=== PATIENT | male | born 1990 | race Caucasian/White ===

== ENCOUNTER 2020-03-27 14:41 | Emergency (ER) | payer OTHER ==
[2020-03-27 14:48] VITALS: BP 166/86; PULSE 76; RESP 18; TEMP 98.2
[2020-03-27] MEDS ORDERED: traMADol 50 MG STARTER PACK 3 TAB BTL PO STA (15:17)
--- NOTE | 2020-03-27 15:18 | ED ---
General Adult HPI - General Chief complaint: Recheck/Abnormal Lab/Rx Stated complaint: hemorrhoids Time Seen by Provider: 03/27/20 15:10 Source: patient, RN notes reviewed Mode of arrival: ambulatory Limitations: no limitations - History of Present Illness Initial comments: Patient is a pleasant 29-year-old male presenting to the emergency Department [facility] complaints of rectal pain. Onset of symptoms was a week or 2 ago. Patient complains of discomfort in the rectum. No bleeding. No history of similar symptoms previously. Patient does have occasional loose stools since having his gallbladder removed a couple of years ago. No abdominal pain. No fevers. No nausea vomiting. - Related Data Previous Rx's Medication Instructions Recorded Hydrocortisone Acetate [Anusol-Hc] 25 mg RC Q8HR #12 supp.rect 03/27/20 Allergies Allergy/AdvReac Type Severity Reaction Status Date / Time No Known Allergies Allergy Verified 03/27/20 14:49 Review of Systems ROS Statement: Those systems with pertinent positive or pertinent negative responses have been documented in the HPI. ROS Other: All systems not noted in ROS Statement are negative. Constitutional: Denies: fever Eyes: Denies: eye pain ENT: Denies: ear pain Respiratory: Denies: cough, dyspnea Cardiovascular: Denies: chest pain Endocrine: Denies: fatigue Gastrointestinal: Reports: as per HPI. Denies: abdominal pain Genitourinary: Denies: urgency Skin: Denies: rash Neurological: Denies: weakness Past Medical History Past Medical History: Hypertension History of Any Multi-Drug Resistant Organisms: None Reported Past Surgical History: No Surgical Hx Reported, Cholecystectomy, Tonsillectomy Additional Past Surgical History / Comment(s): kidney stone removal Past Psychological History: No Psychological Hx Reported Smoking Status: Never smoker Past Alcohol Use History: None Reported Past Drug Use History: Marijuana General Exam Limitations: no limitations General appearance: alert, in no apparent distress Head exam: Present: normocephalic Eye exam: Present: normal appearance Neck exam: Present: normal inspection Respiratory exam: Present: normal lung sounds bilaterally Cardiovascular Exam: Present: regular rate, normal rhythm GI/Abdominal exam: Present: soft. Absent: tenderness Rectal exam: Present: hemorrhoids (Internal hemorrhoid palpable borderline internal rectal region. Unable to visualize on gross exam) Extremities exam: Present: normal inspection Neurological exam: Present: alert Psychiatric exam: Present: normal affect, normal mood Skin exam: Present: normal color Course Vital Signs 03/27/20 14:45 Temperature 98.2 F Pulse Rate 76 Respiratory 18 Rate Blood Pressure 166/86 O2 Sat by Pulse 98 Oximetry Medical Decision Making - Medical Decision Making Patient has probable hemorrhoid is advised to follow-up with general surgeon regarding this. Disposition Clinical Impression: Hemorrhoid Disposition: HOME SELF-CARE Condition: Stable Instructions (If sedation given, give patient instructions): Hemorrhoids (ED) Additional Instructions: Please follow-up with surgeon in the next couple of days for repeat evaluation and further care. Return for bleeding, fever, increased pain, worsening or changing symptoms or other concerns. Prescription sent to [facility] in [place] Prescriptions: Hydrocortisone Acetate [Anusol-Hc] 25 mg RC Q8HR #12 supp.rect Is patient prescribed a controlled substance at d/c from ED?: No Referrals: Miguel Bolivar MD [STAFF PHYSICIAN] - 1-2 days Time of Disposition: 15:22
== END 2020-03-27 15:31 | disposition home or self-care (01) ==
LOC: EC 14:41
DX: K64.8 Other hemorrhoids (principal); I10 Essential (primary) hypertension
CPT/HCPCS: 99282

== ENCOUNTER 2020-10-24 16:15 | Emergency (ER) | payer OTHER ==
[2020-10-24 16:35] VITALS: RESP 18
[2020-10-24] MEDS ORDERED: SODIUM CHLORIDE 0.9% 2,000 ML IV STA (16:50)
[2020-10-24] MEDS ORDERED: ONDANSETRON 4 MG/2 ML VIAL IVP STA (16:50)
[2020-10-24] MEDS ORDERED: HYDROmorphone 1 MG/ML 1 ML SYRINGE IVP STA (16:50)
[2020-10-24] MEDS ORDERED: KETOROLAC 15 MG/ML 1 ML VIAL IVP STA (16:50)
[2020-10-24] MEDS ORDERED: KETOROLAC 15 MG/ML 1 ML VIAL ONE (17:13)
[2020-10-24] MEDS ORDERED: HYDROmorphone 0.5 MG/0.5 ML SYRINGE IVP STA (17:21)
[2020-10-24] MEDS ORDERED: diphenhydrAMINE 50 MG/ML 1 ML VIAL IVP STA (17:21)
[2020-10-24] MEDS ORDERED: METOCLOPRAMIDE 5 MG/ML 2 ML VIAL IVP STA (17:21)
[2020-10-24 17:24] LABS: Basophils # (A) 0.1 k/uL (0-0.2); Basophils % (A) 1 %; Eosinophils # (A) 0.1 k/uL (0-0.7); Eosinophils % (A) 1 %; HCT 53.3 % (39.0-53.0); HGB 18.2 gm/dL (13.0-17.5); Lymphocytes # (A) 2.8 k/uL (1.0-4.8); Lymphocytes % (A) 26 %; MCH 29.4 pg (25.0-35.0); MCHC 34.2 g/dL (31.0-37.0); Mean Platelet Volume 6.9; Monocytes # (A) 0.6 k/uL (0-1.0); Monocytes % (A) 6 %; Neutrophils # (A) 7.1 k/uL (1.3-7.7); Neutrophils % (A) 65 %; Platelet Count 284 k/uL (150-450)
[2020-10-24 17:46] LABS: ALT 45 U/L (4-49); AST 27 U/L (17-59); African American GFR (CKD) >90 (>60 ml/min/1.73 sqM); Albumin 4.7 g/dL (3.5-5.0); Alkaline Phosphatase 67 U/L (38-126); Amylase 122 U/L (30-110); Anion Gap 11 mmol/L; Blood Urea Nitrogen 16 mg/dL (9-20); Calcium 10.1 mg/dL (8.4-10.2); Carbon Dioxide 26 mmol/L (22-30); Chloride 102 mmol/L (98-107); Glucose 162 mg/dL (74-99); Lipase 745 U/L (23-300); Non-African American GFR(CKD) 89 (>60 ml/min/1.73 sqM); Potassium 4.1 mmol/L (3.5-5.1); Sodium 139 mmol/L (137-145); Total Bilirubin 1.4 mg/dL (0.2-1.3); Total Protein 7.9 g/dL (6.3-8.2)
--- NOTE | 2020-10-24 18:06 | ED ---
Abdominal Pain HPI - General Chief Complaint: Abdominal Pain Stated Complaint: vomiting/abd pain Time Seen by Provider: 10/24/20 16:47 Source: patient, RN notes reviewed Mode of arrival: ambulatory Limitations: no limitations - History of Present Illness Initial Comments: 30-year-old male presents emergency Department chief complaint severe abdominal pain, flank pain. Patient states started earlier today. He states this is not necessary feel a kidney stone but states he's had multiple kidney stones in the past. He states she's had severe pain, nausea vomiting states the pain rates from his left flank only down into his scrotum. He has no scrotal changes noted pain with palpation to the scrotum. No dysuria he's had slight diarrhea no significant melena or hematochezia. - Related Data Previous Rx's Medication Instructions Recorded Hydrocortisone Acetate [Anusol-Hc] 25 mg RC Q8HR #12 supp.rect 03/27/20 HYDROcodone/APAP 7.5-325MG [[place] 1 tab PO Q6HR PRN 3 Days #12 tab 10/24/20 7.5-325] Ketorolac [Toradol] 10 mg PO Q8HR #15 tab 10/24/20 Ondansetron Odt [Zofran Odt] 4 mg PO Q8HR PRN #10 tab 10/24/20 Tamsulosin [Flomax] 0.4 mg PO DAILY #7 cap 10/24/20 Allergies Allergy/AdvReac Type Severity Reaction Status Date / Time No Known Allergies Allergy Verified 10/24/20 16:35 Review of Systems ROS Statement: Those systems with pertinent positive or pertinent negative responses have been documented in the HPI. ROS Other: All systems not noted in ROS Statement are negative. Past Medical History Past Medical History: Hypertension History of Any Multi-Drug Resistant Organisms: None Reported Past Surgical History: No Surgical Hx Reported, Cholecystectomy, Tonsillectomy Additional Past Surgical History / Comment(s): kidney stone removal Past Psychological History: No Psychological Hx Reported Smoking Status: Never smoker Past Alcohol Use History: None Reported Past Drug Use History: Marijuana General Exam Limitations: no limitations General appearance: alert, in no apparent distress Head exam: Present: atraumatic, normocephalic, normal inspection Eye exam: Present: normal appearance, PERRL, EOMI. Absent: scleral icterus, conjunctival injection, periorbital swelling ENT exam: Present: normal exam, normal oropharynx, mucous membranes moist Neck exam: Present: normal inspection, full ROM. Absent: tenderness, meningismus, lymphadenopathy Respiratory exam: Present: normal lung sounds bilaterally. Absent: respiratory distress, wheezes, rales, rhonchi, stridor Cardiovascular Exam: Present: regular rate, normal rhythm, normal heart sounds. Absent: systolic murmur, diastolic murmur, rubs, gallop, clicks GI/Abdominal exam: Present: soft, tenderness, normal bowel sounds. Absent: distended, guarding, rebound, rigid Back exam: Present: CVA tenderness (L). Absent: CVA tenderness (R) Neurological exam: Present: alert, oriented X3 Skin exam: Present: warm, dry, intact, normal color. Absent: rash Course Vital Signs 10/24/20 16:31 Temperature 97.8 F Pulse Rate 95 Respiratory 18 Rate Blood Pressure 170/100 O2 Sat by Pulse 99 Oximetry Medical Decision Making - Medical Decision Making Labwork reviewed shows evidence of mild pancreatitis is no localized pain CT does not reveal any acute changes on the pancreas patient does have obstructing 3 mm stone. Patient we discharged in stable condition repeat temperature discussed patient's pain is improved. - Lab Data Result diagrams: 10/24/20 17:16 10/24/20 17:16 Lab Results 10/24/20 10/24/20 Range/Units 17:16 17:16 WBC 11.0 H (3.8-10.6) k/uL RBC 6.20 H (4.30-5.90) m/uL Hgb 18.2 H (13.0-17.5) gm/dL Hct 53.3 H (39.0-53.0) % MCV 86.0 (80.0-100.0) fL MCH 29.4 (25.0-35.0) pg MCHC 34.2 (31.0-37.0) g/dL RDW 13.0 (11.5-15.5) % Plt Count 284 (150-450) k/uL MPV 6.9 Neutrophils % 65 % Lymphocytes % 26 % Monocytes % 6 % Eosinophils % 1 % Basophils % 1 % Neutrophils # 7.1 (1.3-7.7) k/uL Lymphocytes # 2.8 (1.0-4.8) k/uL Monocytes # 0.6 (0-1.0) k/uL Eosinophils # 0.1 (0-0.7) k/uL Basophils # 0.1 (0-0.2) k/uL Sodium 139 (137-145) mmol/L Potassium 4.1 (3.5-5.1) mmol/L Chloride 102 (98-107) mmol/L Carbon Dioxide 26 (22-30) mmol/L Anion Gap 11 mmol/L BUN 16 (9-20) mg/dL Creatinine 1.12 (0.66-1.25) mg/dL Est GFR (CKD-EPI)AfAm >90 (>60 ml/min/1.73 sqM) Est GFR (CKD-EPI)NonAf 89 (>60 ml/min/1.73 sqM) Glucose 162 H (74-99) mg/dL Calcium 10.1 (8.4-10.2) mg/dL Total Bilirubin 1.4 H (0.2-1.3) mg/dL AST 27 (17-59) U/L ALT 45 (4-49) U/L Alkaline Phosphatase 67 (38-126) U/L Total Protein 7.9 (6.3-8.2) g/dL Albumin 4.7 (3.5-5.0) g/dL Amylase 122 H (30-110) U/L Lipase 745 H (23-300) U/L Disposition Clinical Impression: Abdominal pain, Ureteral calculi, Pancreatitis Disposition: HOME SELF-CARE Condition: Stable Instructions (If sedation given, give patient instructions): Kidney Stones (ED) Additional Instructions: Please return to the Emergency Department if symptoms worsen or any other concerns. Prescriptions: Tamsulosin [Flomax] 0.4 mg PO DAILY #7 cap HYDROcodone/APAP 7.5-325MG [[place] 7.5-325] 1 tab PO Q6HR PRN 3 Days #12 tab PRN Reason: pain Ketorolac [Toradol] 10 mg PO Q8HR #15 tab Ondansetron Odt [Zofran Odt] 4 mg PO Q8HR PRN #10 tab PRN Reason: Nausea Is patient prescribed a controlled substance at d/c from ED?: Yes When asked, does pt state using other controlled substances?: No If prescribed controlled substance>3 days was MAPS reviewed?: Prescribed <3 Days If opioid is for acute pain is fill amount 7 days or less?: Yes If Rx opioid, was Start Talking consent form obtained?: Yes Referrals: None,Stated [Primary Care Provider] - 1-2 days Time of Disposition: 18:50
--- NOTE | 2020-10-24 18:24 | XR ---
EXAMINATION TYPE: XR KUB DATE OF EXAM: 10/24/2020 COMPARISON: NONE HISTORY: Left flank pain TECHNIQUE: 2 views FINDINGS: There is no sign of intestinal obstruction or pneumoperitoneum. Fecal pattern is normal. Th ere are clips from cholecystectomy. Lung bases are clear. There are no pathologic calcifications over the kidneys. IMPRESSION: Nonacute abdomen.
--- NOTE | 2020-10-24 18:30 | CT ---
EXAMINATION TYPE: CT abdomen pelvis w con DATE OF EXAM: 10/24/2020 COMPARISON: None HISTORY: Left sided abdominal pain with nausea and vomiting. CT DLP: 2462.3 mGycm Automated exposure control for dose reduction was used. CONTRAST: Performed with IV Contrast, patient injected with 100 mL of Isovue 300. Lung bases are clear. There is no pleural effusion. Heart size is normal. There is no pericardial eff usion. There is some fatty infiltration of the liver. There are clips from cholecystectomy. Spleen stomach p ancreas appear normal. There is no adrenal mass. There is mild left-sided hydronephrosis and hydroureter. There is 3 mm calc ulus in the distal left ureter. There is delayed left side pyelogram. Right kidney shows normal opaci fication and excretion. There is no retroperitoneal adenopathy. Appendix is posterior and appears nor mal. There is no mesenteric edema. There is no ascites or free air. There is no bowel obstruction. There i s fat containing 2.5 cm umbilical hernia. Bladder distends smoothly. There is no inguinal hernia. There is no free fluid in the pelvis. There i s no sign of a pelvic mass. Lumbar vertebra appear intact. Bony pelvis is intact. Hip joints appear normal. Sacroiliac joints are intact. IMPRESSION: There is small obstructing calculus at the left ureteral vesicle junction with left-sided mild hydron ephrosis and hydroureter. Fatty infiltration of the liver.
[2020-10-24] MEDS ORDERED: HYDROcodone/APAP 7.5-325MG 1 EACH TAB PO ONE (18:48)
[2020-10-24] MEDS ORDERED: TAMSULOSIN 0.4 MG CAP.ER.24H PO STA (18:48)
[2020-10-24 19:02] LABS: Appearance,Urine Clear (Clear); Bilirubin,Urine Negative (Negative); Blood,Urine Small (Negative); Color,Urine Yellow; Glucose,Urine (UA) Negative (Negative); Ketones,Urine Negative (Negative); Leukocyte Esterase,Urine Negative (Negative); Mucus,Urine Rare /hpf; Nitrite,Urine Negative (Negative); PH, Urine 6.5 (5.0-8.0); Protein,Urine Negative (Negative); RBC,Urine 1 /hpf (0-5); Specific Gravity,Urine 1.033 (1.001-1.035); Urobilinogen,Urine <2.0 mg/dL (<2.0); WBC,Urine <1 /hpf (0-5)
[2020-10-24 19:14] VITALS: BP 175/90; PULSE 77; TEMP 97.5
== END 2020-10-24 19:14 | disposition home or self-care (01) ==
LOC: EC 16:15
DX: K85.90 Acute pancreatitis without necrosis or infection, unspecified (principal); N20.1 Calculus of ureter; I10 Essential (primary) hypertension; Z90.49 Acquired absence of other specified parts of digestive tract
CPT/HCPCS: 36415; 80053; 82150; 83690; 85025; 81001; 74018; 74177; 99284; 96374; 96375 ×4; 96376; 96361 ×2; J1200; J2765; J2405; J1170 ×2; J1885; Q9967

== ENCOUNTER 2020-10-25 00:53 | Emergency (ER) | payer OTHER ==
[2020-10-25 00:57] VITALS: BP 153/108; PULSE 99; RESP 18; TEMP 99.4
[2020-10-25] MEDS ORDERED: HYDROcodone/APAP 5-325MG 1 EACH TAB PO STA (01:11)
[2020-10-25] MEDS ORDERED: Acetaminophen-Codeine 300-30mg TAB PO STA (01:11)
[2020-10-25] MEDS ORDERED: ACET/COD 300 MG/30 MG STARTER PACK 6 TAB BTL PO STA (01:11)
[2020-10-25] MEDS ORDERED: KETOROLAC 15 MG/ML 1 ML VIAL IM STA (01:11)
--- NOTE | 2020-10-25 01:11 | ED ---
Recheck HPI - General Chief Complaint: Recheck/Abnormal Lab/Rx Stated Complaint: Abd Pain - Revisit Time Seen by Provider: 10/25/20 00:58 Source: patient, RN notes reviewed, old records reviewed Mode of arrival: ambulatory Limitations: no limitations - History of Present Illness Initial Comments: This is a 22-year-old male DF for evaluation patient has history of multiple kidney stones recurrent was here in the ER earlier in the day for kidney stones patient requesting for pain relief. Patient denying any fevers is able to urinate no other new pain. Patient tried to get prescription filled was unable to MD Complaint: medication refill request -: hour(s) Returns Today for: persistent/worsening pain related to initial visit Symptoms Since Prior Visit: worsening pain Context: ran out of medication Associated Symptoms: abdominal pain Treatments Prior to Arrival: Given Pain Meds on - Related Data Previous Rx's Medication Instructions Recorded Hydrocortisone Acetate [Anusol-Hc] 25 mg RC Q8HR #12 supp.rect 03/27/20 HYDROcodone/APAP 7.5-325MG [[place] 1 tab PO Q6HR PRN 3 Days #12 tab 10/24/20 7.5-325] Ketorolac [Toradol] 10 mg PO Q8HR #15 tab 10/24/20 Ondansetron Odt [Zofran Odt] 4 mg PO Q8HR PRN #10 tab 10/24/20 Tamsulosin [Flomax] 0.4 mg PO DAILY #7 cap 10/24/20 Allergies Allergy/AdvReac Type Severity Reaction Status Date / Time No Known Allergies Allergy Verified 10/25/20 00:57 Review of Systems ROS Statement: Those systems with pertinent positive or pertinent negative responses have been documented in the HPI. ROS Other: All systems not noted in ROS Statement are negative. Past Medical History Past Medical History: Hypertension History of Any Multi-Drug Resistant Organisms: None Reported Past Surgical History: No Surgical Hx Reported, Cholecystectomy, Tonsillectomy Additional Past Surgical History / Comment(s): kidney stone removal Past Psychological History: No Psychological Hx Reported Smoking Status: Never smoker Past Alcohol Use History: None Reported Past Drug Use History: Marijuana General Exam Limitations: no limitations General appearance: alert, in no apparent distress Head exam: Present: atraumatic, normocephalic, normal inspection Eye exam: Present: normal appearance, PERRL, EOMI. Absent: scleral icterus, conjunctival injection, periorbital swelling ENT exam: Present: normal exam, mucous membranes moist Neck exam: Present: normal inspection. Absent: tenderness, meningismus, lymphadenopathy Respiratory exam: Present: normal lung sounds bilaterally. Absent: respiratory distress, wheezes, rales, rhonchi, stridor Cardiovascular Exam: Present: regular rate, normal rhythm, normal heart sounds. Absent: systolic murmur, diastolic murmur, rubs, gallop, clicks GI/Abdominal exam: Present: soft, normal bowel sounds. Absent: distended, tenderness, guarding, rebound, rigid Extremities exam: Present: normal inspection, full ROM, normal capillary refill. Absent: tenderness, pedal edema, joint swelling, calf tenderness Back exam: Present: normal inspection Neurological exam: Present: alert, oriented X3, CN II-XII intact Psychiatric exam: Present: normal affect, normal mood Skin exam: Present: warm, dry, intact, normal color. Absent: rash Course Vital Signs 10/25/20 00:56 Temperature 99.4 F Pulse Rate 99 Respiratory 18 Rate Blood Pressure 153/108 O2 Sat by Pulse 98 Oximetry - Reevaluation(s) Reevaluation #1: Medical record is reviewed ER visit from earlier today has been reviewed Patient has adequate pain control currently Medical Decision Making - Medical Decision Making 30 male for recheck abdominal pain. Patient has known kidney stones diagnosed earlier unable to get pain medication for home, patient is requesting pain relief in the ER until the morning Disposition Clinical Impression: Abdominal pain, Ureteral calculi Disposition: HOME SELF-CARE Condition: Good Instructions (If sedation given, give patient instructions): Abdominal Pain (ED) Is patient prescribed a controlled substance at d/c from ED?: No Referrals: None,Stated [Primary Care Provider] - 1-2 days
[2020-10-25] MEDS ORDERED: HYDROmorphone 1 MG/ML 1 ML SYRINGE IM STA (01:14)
[2020-10-25] MEDS ORDERED: ETODOLAC 400 MG TAB PO ONE (01:30)
== END 2020-10-25 01:34 | disposition home or self-care (01) ==
LOC: EC 00:53
DX: N20.1 Calculus of ureter (principal); Z87.442 Personal history of urinary calculi; Z90.49 Acquired absence of other specified parts of digestive tract
CPT/HCPCS: 99284; 96372; J1170

== ENCOUNTER 2020-12-19 20:02 | Emergency (ER) | payer OTHER ==
[2020-12-19 20:12] VITALS: RESP 18
--- NOTE | 2020-12-19 21:20 | XR ---
EXAMINATION TYPE: XR chest 2V DATE OF EXAM: 12/19/2020 COMPARISON: NONE HISTORY: Cough and short of breath TECHNIQUE: 2 views FINDINGS: Heart and mediastinum are normal. Lungs are clear. Diaphragm is normal. Bony thorax appears normal. IMPRESSION: Normal chest.
[2020-12-19] MEDS ORDERED: ONDANSETRON 4 MG ODT STARTER PACK 2 TAB BTL PO STA (21:22)
--- NOTE | 2020-12-19 21:33 | ED ---
General Adult HPI - General Chief complaint: Abdominal Pain Stated complaint: Light headed,vomiting,SOB Time Seen by Provider: 12/19/20 20:14 Source: patient Mode of arrival: ambulatory - History of Present Illness Initial comments: 30 year-old male patient presents to the emergency department today for evaluation of upper respiratory symptoms. He is reporting nasal congestion and cough that started today. He is reporting yellow nasal drainage and yellow sputum production. Reports mild chest tightness. Denies any fever or chills. States he did have an episode of vomiting. States that he felt like he nearly passed out after vomiting. Reports midepigastric discomfort. States this started approximately three hours after eating soup from [employer]. Denies any diarrhea. Did take mucinex and zicam nasal spray. Patient denies any recent rash, chest pain, abdominal pain, nausea, vomiting, diarrhea, constipation, back pain, numbness, tingling, dizziness, weakness, hematuria, dysuria, urinary urgency, urinary frequency, headache, visual changes, or any other complaints. - Related Data Home Medications Medication Instructions Recorded Confirmed No Known Home Medications 12/19/20 12/19/20 Allergies Allergy/AdvReac Type Severity Reaction Status Date / Time No Known Allergies Allergy Verified 12/19/20 20:12 Review of Systems ROS Statement: Those systems with pertinent positive or pertinent negative responses have been documented in the HPI. ROS Other: All systems not noted in ROS Statement are negative. Past Medical History Past Medical History: Hypertension Additional Past Medical History / Comment(s): pancreatitis History of Any Multi-Drug Resistant Organisms: None Reported Past Surgical History: No Surgical Hx Reported, Cholecystectomy, Tonsillectomy Additional Past Surgical History / Comment(s): kidney stone removal Past Psychological History: No Psychological Hx Reported Smoking Status: Never smoker Past Alcohol Use History: None Reported Past Drug Use History: Marijuana General Exam General appearance: alert, in no apparent distress, other (This is a well developed, well nourished, adult male patient in no acute distress. Vital signs upon presentation are temperature 98.4F, pulse 108, respirations 18, blood pressure 169/110, pulse ox 99% on room air.) Eye exam: Present: normal appearance, PERRL, EOMI. Absent: scleral icterus, conjunctival injection, periorbital swelling ENT exam: Present: normal exam, normal oropharynx, mucous membranes moist Respiratory exam: Present: normal lung sounds bilaterally. Absent: respiratory distress, wheezes, rales, rhonchi, stridor Cardiovascular Exam: Present: regular rate, normal rhythm, normal heart sounds. Absent: systolic murmur, diastolic murmur, rubs, gallop, clicks GI/Abdominal exam: Present: soft, tenderness (mild midepigastric), normal bowel sounds. Absent: distended, guarding, rebound, rigid Neurological exam: Present: alert, oriented X3, CN II-XII intact Psychiatric exam: Present: normal affect, normal mood Skin exam: Present: warm, dry, intact, normal color. Absent: rash Course Vital Signs 12/19/20 20:09 Temperature 98.4 F Pulse Rate 108 H Respiratory 18 Rate Blood Pressure 169/110 O2 Sat by Pulse 99 Oximetry Medical Decision Making - Medical Decision Making 30-year-old male patient presents to the emergency department today for evaluation of cough, nasal congestion, and an episode of vomiting. Physical examination revealed soft nontender abdomen. Lungs are clear to auscultation with good air movement. Vital signs improved. Chest x-ray is negative. He tested negative for COVID-19. Be discharged from his primary care physician for recheck in 1-2 days. Return parameters were discussed in detail. He verbalizes understanding and agrees with this plan. - Lab Data Lab Results 12/19/20 Range/Units 21:27 Coronavirus (PCR) Not Detected (Not Detectd) - Radiology Data Radiology results: report reviewed, image reviewed Two-view x-ray of the chest is obtained. Report was reviewed entirety. Impression by Dr. Jones shows normal chest. Disposition Clinical Impression: Viral upper respiratory infection Disposition: HOME SELF-CARE Condition: Good Instructions (If sedation given, give patient instructions): Upper Respiratory Infection (ED) Additional Instructions: Follow-up with the primary care physician for recheck in 1-2 days. Continue over the counter nasal decongestants and cough suppressants. Rest. Increase fluids. Return to the emergency department for any new, worsening, or concerning symptoms. Is patient prescribed a controlled substance at d/c from ED?: No Referrals: None,Stated [Primary Care Provider] - 1-2 days Time of Disposition: 22:39
[2020-12-19] MEDS ORDERED: DEXAMETHASONE SOD PHOSPHATE 10 MG/ML 1 ML VIAL IM STA (22:37)
[2020-12-19 22:57] VITALS: BP 153/85; PULSE 71; TEMP 98.2
== END 2020-12-19 22:56 | disposition home or self-care (01) ==
LOC: EC 20:02
DX: J06.9 Acute upper respiratory infection, unspecified (principal); I10 Essential (primary) hypertension; Z20.822 Contact with and (suspected) exposure to COVID-19
CPT/HCPCS: 87635; 71046; 99284; 96372; J1100; S0119

== ENCOUNTER 2021-01-13 11:46 | Emergency (ER) | payer OTHER ==
[2021-01-13 11:50] VITALS: TEMP 98.6
[2021-01-13] MEDS ORDERED: HYDROmorphone 0.5 MG/0.5 ML SYRINGE IVP STA ×3 (12:17→15:15)
[2021-01-13] MEDS ORDERED: SODIUM CHLORIDE 0.9% 2,000 ML IV STA (12:17)
[2021-01-13] MEDS ORDERED: ONDANSETRON 4 MG/2 ML VIAL IVP STA ×2 (12:17→14:44)
[2021-01-13] MEDS ORDERED: KETOROLAC 15 MG/ML 1 ML VIAL IVP STA ×2 (12:17→14:27)
--- NOTE | 2021-01-13 12:26 | ED ---
Abdominal Pain HPI - General Chief Complaint: Abdominal Pain Stated Complaint: groin pain Time Seen by Provider: 01/13/21 11:52 Source: patient, RN notes reviewed Mode of arrival: ambulatory Limitations: no limitations - History of Present Illness Initial Comments: 30-year-old male presents emergency Department chief complaint severe left flank pain. Patient states she's had multiple kidney stones in the past. Patient states this feels exactly the same. Patient is to pain is rating down into his groin, scrotum. Denies any scrotal swelling times with palpation no dysuria no noted hematuria. Patient states she's had nausea vomiting. . - Related Data Previous Rx's Medication Instructions Recorded Ketorolac [Toradol] 10 mg PO Q8HR #15 tab 01/13/21 Ondansetron Odt [Zofran Odt] 4 mg PO Q8HR PRN #10 tab 01/13/21 Tamsulosin [Flomax] 0.4 mg PO DAILY #7 cap 01/13/21 Allergies Allergy/AdvReac Type Severity Reaction Status Date / Time No Known Allergies Allergy Verified 01/13/21 13:58 Review of Systems ROS Statement: Those systems with pertinent positive or pertinent negative responses have been documented in the HPI. ROS Other: All systems not noted in ROS Statement are negative. Past Medical History Past Medical History: Hypertension Additional Past Medical History / Comment(s): pancreatitis History of Any Multi-Drug Resistant Organisms: None Reported Past Surgical History: No Surgical Hx Reported, Cholecystectomy, Tonsillectomy Additional Past Surgical History / Comment(s): kidney stone removal Past Psychological History: No Psychological Hx Reported Smoking Status: Vaper Past Alcohol Use History: None Reported Past Drug Use History: Marijuana General Exam Limitations: no limitations General appearance: alert, in no apparent distress Head exam: Present: atraumatic, normocephalic, normal inspection Eye exam: Present: normal appearance, PERRL, EOMI. Absent: scleral icterus, conjunctival injection, periorbital swelling ENT exam: Present: normal exam, mucous membranes moist Neck exam: Present: normal inspection. Absent: tenderness, meningismus, lymphadenopathy Respiratory exam: Present: normal lung sounds bilaterally. Absent: respiratory distress, wheezes, rales, rhonchi, stridor Cardiovascular Exam: Present: regular rate, normal rhythm, normal heart sounds. Absent: systolic murmur, diastolic murmur, rubs, gallop, clicks GI/Abdominal exam: Present: soft, tenderness, normal bowel sounds. Absent: distended, guarding, rebound, rigid Back exam: Present: CVA tenderness (L). Absent: CVA tenderness (R) Skin exam: Present: warm, dry, intact, normal color. Absent: rash Course Vital Signs 01/13/21 11:48 Temperature 98.6 F Pulse Rate 82 Respiratory 22 Rate Blood Pressure 188/135 O2 Sat by Pulse 99 Oximetry Medical Decision Making - Medical Decision Making 30-year-old male presented for flank pain history kidney stone patient was hydrated, given antiemetics pain control patient symptoms are improved. Patient will be discharged in stable condition return parameters were discussed. - Lab Data Result diagrams: 01/13/21 12:51 01/13/21 12:51 Lab Results 01/13/21 01/13/21 Range/Units 12:51 12:51 WBC 6.6 (3.8-10.6) k/uL RBC 6.20 H (4.30-5.90) m/uL Hgb 19.0 H (13.0-17.5) gm/dL Hct 53.3 H (39.0-53.0) % MCV 86.0 (80.0-100.0) fL MCH 30.7 (25.0-35.0) pg MCHC 35.7 (31.0-37.0) g/dL RDW 12.6 (11.5-15.5) % Plt Count 256 (150-450) k/uL MPV 7.0 Neutrophils % 63 % Lymphocytes % 26 % Monocytes % 6 % Eosinophils % 3 % Basophils % 1 % Neutrophils # 4.1 (1.3-7.7) k/uL Lymphocytes # 1.7 (1.0-4.8) k/uL Monocytes # 0.4 (0-1.0) k/uL Eosinophils # 0.2 (0-0.7) k/uL Basophils # 0.1 (0-0.2) k/uL Sodium 139 (137-145) mmol/L Potassium 4.4 (3.5-5.1) mmol/L Chloride 104 (98-107) mmol/L Carbon Dioxide 24 (22-30) mmol/L Anion Gap 11 mmol/L BUN 15 (9-20) mg/dL Creatinine 1.01 (0.66-1.25) mg/dL Est GFR (CKD-EPI)AfAm >90 (>60 ml/min/1.73 sqM) Est GFR (CKD-EPI)NonAf >90 (>60 ml/min/1.73 sqM) Glucose 125 H (74-99) mg/dL Calcium 9.7 (8.4-10.2) mg/dL Total Bilirubin 0.9 (0.2-1.3) mg/dL AST 28 (17-59) U/L ALT 42 (4-49) U/L Alkaline Phosphatase 65 (38-126) U/L Total Protein 7.9 (6.3-8.2) g/dL Albumin 4.7 (3.5-5.0) g/dL Amylase 81 (30-110) U/L Lipase 500 H (23-300) U/L Disposition Clinical Impression: Kidney stone Disposition: HOME SELF-CARE Condition: Stable Instructions (If sedation given, give patient instructions): Kidney Stones (ED) Additional Instructions: Please return to the Emergency Department if symptoms worsen or any other concerns. Prescriptions: Tamsulosin [Flomax] 0.4 mg PO DAILY #7 cap Ketorolac [Toradol] 10 mg PO Q8HR #15 tab Ondansetron Odt [Zofran Odt] 4 mg PO Q8HR PRN #10 tab PRN Reason: Nausea Is patient prescribed a controlled substance at d/c from ED?: No Referrals: None,Stated [Primary Care Provider] - 1-2 days Eamon Aceves MD [STAFF PHYSICIAN] - 1-2 days Time of Disposition: 14:22
[2021-01-13 13:01] LABS: Basophils # (A) 0.1 k/uL (0-0.2); Basophils % (A) 1 %; Eosinophils # (A) 0.2 k/uL (0-0.7); Eosinophils % (A) 3 %; HCT 53.3 % (39.0-53.0); Lymphocytes # (A) 1.7 k/uL (1.0-4.8); Lymphocytes % (A) 26 %; MCH 30.7 pg (25.0-35.0); MCHC 35.7 g/dL (31.0-37.0); Monocytes # (A) 0.4 k/uL (0-1.0); Monocytes % (A) 6 %; Neutrophils # (A) 4.1 k/uL (1.3-7.7); Neutrophils % (A) 63 %; Platelet Count 256 k/uL (150-450); RDW 12.6 % (11.5-15.5); WBC 6.6 k/uL (3.8-10.6)
[2021-01-13 13:11] LABS: ALT 42 U/L (4-49); AST 28 U/L (17-59); African American GFR (CKD) >90 (>60 ml/min/1.73 sqM); Albumin 4.7 g/dL (3.5-5.0); Alkaline Phosphatase 65 U/L (38-126); Amylase 81 U/L (30-110); Anion Gap 11 mmol/L; Blood Urea Nitrogen 15 mg/dL (9-20); Calcium 9.7 mg/dL (8.4-10.2); Carbon Dioxide 24 mmol/L (22-30); Chloride 104 mmol/L (98-107); Glucose 125 mg/dL (74-99); Lipase 500 U/L (23-300); Non-African American GFR(CKD) >90 (>60 ml/min/1.73 sqM); Potassium 4.4 mmol/L (3.5-5.1); Sodium 139 mmol/L (137-145); Total Bilirubin 0.9 mg/dL (0.2-1.3); Total Protein 7.9 g/dL (6.3-8.2)
--- NOTE | 2021-01-13 13:17 | XR ---
EXAMINATION TYPE: XR KUB DATE OF EXAM: 01/13/2021 1:09 PM CLINICAL HISTORY: Left flank pain. TECHNIQUE: 3 Upright KUB images of the abdomen are obtained. COMPARISON: Abdominal x-ray and CT October 24, 2020 FINDINGS: Possibly of bowel gas redemonstrated. Gas seen in nondistended stomach along with scattered small and large bowel loops. Cholecystectomy clips are redemonstrated. Liver size stable and upper l imits of normal. Lung bases are clear. No free air. Visualized osseous structures are intact. Small c alculus left UVJ on recent CT less well seen on plain films. IMPRESSION: Overall nonspecific but felt to be nonobstructive bowel gas pattern remains present.
[2021-01-13] MEDS ORDERED: ACET/COD 300 MG/30 MG STARTER PACK 6 TAB BTL PO STA (14:22)
[2021-01-13] MEDS ORDERED: TAMSULOSIN 0.4 MG CAP.ER.24H PO STA (14:27)
[2021-01-13 14:56] LABS: Appearance,Urine Clear (Clear); Bilirubin,Urine Negative (Negative); Blood,Urine Negative (Negative); Color,Urine Light Yellow; Glucose,Urine (UA) Negative (Negative); Ketones,Urine Negative (Negative); Leukocyte Esterase,Urine Negative (Negative); Nitrite,Urine Negative (Negative); Protein,Urine Negative (Negative); Specific Gravity,Urine 1.019 (1.001-1.035); Urobilinogen,Urine <2.0 mg/dL (<2.0)
[2021-01-13 15:20] VITALS: RESP 18
[2021-01-13] MEDS ORDERED: METOCLOPRAMIDE 5 MG/ML 2 ML VIAL IVP STA (15:40)
[2021-01-13 16:33] VITALS: BP 119/70; PULSE 75
== END 2021-01-13 16:34 | disposition home or self-care (01) ==
LOC: EC 11:46
DX: N20.0 Calculus of kidney (principal); F17.290 Nicotine dependence, other tobacco product, uncomplicated; Z90.89 Acquired absence of other organs; Z90.49 Acquired absence of other specified parts of digestive tract
CPT/HCPCS: 36415; 80053; 82150; 83690; 85025; 81003; 74018; 99284; 96374; 96375 ×3; 96376 ×4; 96361 ×2; J2765; J2405; J1885; J1170

== ENCOUNTER 2021-02-02 18:24 | Emergency (ER) | payer OTHER ==
[2021-02-02 18:36] VITALS: BP 151/81; PULSE 100; RESP 18; TEMP 98.3
--- NOTE | 2021-02-02 18:56 | ED ---
General Adult HPI - General Chief complaint: Recheck/Abnormal Lab/Rx Stated complaint: hemorrhoid Time Seen by Provider: 02/02/21 18:32 Source: patient, RN notes reviewed, old records reviewed Mode of arrival: ambulatory Limitations: no limitations - History of Present Illness Initial comments: 22-year-old male presents for evaluation of pain and swelling in his anus, concern for hemorrhage. Patient has had a hemorrhoid before and states that he was able to have this incised. He has noticed this approximate 5 days ago on the left side. He denies abdominal pain. Denies bleeding. States he's had several bowel movements which were soft, he's not been constipated. no Fever. No other complaints. - Related Data Previous Rx's Medication Instructions Recorded Ketorolac [Toradol] 10 mg PO Q8HR #15 tab 01/13/21 Ondansetron Odt [Zofran Odt] 4 mg PO Q8HR PRN #10 tab 01/13/21 Tamsulosin [Flomax] 0.4 mg PO DAILY #7 cap 01/13/21 HYDROcodone/APAP 5-325MG [[place] 1 tab PO Q6HR PRN #12 tab 02/02/21 5-325] Ibuprofen [Motrin] 600 mg PO Q8HR PRN #24 tab 02/02/21 Allergies Allergy/AdvReac Type Severity Reaction Status Date / Time No Known Allergies Allergy Verified 01/13/21 13:58 Review of Systems ROS Statement: Those systems with pertinent positive or pertinent negative responses have been documented in the HPI. ROS Other: All systems not noted in ROS Statement are negative. Past Medical History Past Medical History: Hypertension Additional Past Medical History / Comment(s): pancreatitis History of Any Multi-Drug Resistant Organisms: None Reported Past Surgical History: No Surgical Hx Reported, Cholecystectomy, Tonsillectomy Additional Past Surgical History / Comment(s): kidney stone removal Past Psychological History: No Psychological Hx Reported Smoking Status: Never smoker, Vaper Past Alcohol Use History: None Reported Past Drug Use History: Marijuana General Exam Limitations: no limitations General appearance: alert, in no apparent distress Head exam: Present: atraumatic, normocephalic Eye exam: Present: normal appearance ENT exam: Present: normal exam Neck exam: Present: normal inspection. Absent: tenderness, meningismus Respiratory exam: Present: normal lung sounds bilaterally. Absent: respiratory distress, wheezes Cardiovascular Exam: Present: regular rate, normal rhythm GI/Abdominal exam: Present: soft. Absent: distended, tenderness, guarding Rectal exam: Present: hemorrhoids (1.5 cm hemorrhoid on the left. This is predominantly internal. No bleeding. No cellulitis, no induration.) Extremities exam: Present: normal inspection, normal capillary refill. Absent: pedal edema Neurological exam: Present: alert, oriented X3, CN II-XII intact. Absent: motor sensory deficit Psychiatric exam: Present: normal affect, normal mood Skin exam: Present: warm, dry Course Vital Signs 02/02/21 18:33 Temperature 98.3 F Pulse Rate 100 Respiratory 18 Rate Blood Pressure 151/81 O2 Sat by Pulse 97 Oximetry Medical Decision Making - Medical Decision Making 30 year-old male with 5 days of hemorrhoid. This is not bleeding. he is given pain control, encouraged to use Preparation H, sitz bath and stool softeners. Given general surgery follow-up. Disposition Clinical Impression: Acute hemorrhoid Disposition: HOME SELF-CARE Condition: Good Instructions (If sedation given, give patient instructions): Hemorrhoids (ED) Prescriptions: Ibuprofen [Motrin] 600 mg PO Q8HR PRN #24 tab PRN Reason: Pain HYDROcodone/APAP 5-325MG [[place] 5-325] 1 tab PO Q6HR PRN #12 tab PRN Reason: Pain Is patient prescribed a controlled substance at d/c from ED?: No Referrals: None,Stated [Primary Care Provider] - 1-2 days Raghav Robles MD [Medical Doctor] - 1-2 days Time of Disposition: 18:55
== END 2021-02-02 18:56 | disposition home or self-care (01) ==
LOC: EC 18:24
DX: K64.9 Unspecified hemorrhoids (principal); I10 Essential (primary) hypertension; F12.90 Cannabis use, unspecified, uncomplicated; Z90.49 Acquired absence of other specified parts of digestive tract; Z90.09 Acquired absence of other part of head and neck
CPT/HCPCS: 99283

== ENCOUNTER 2021-07-13 14:46 | Emergency (ER) | payer OTHER ==
[2021-07-13 14:54] VITALS: TEMP 98.3
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
[2021-07-13 16:33] LABS: Basophils # (A) 0.1 k/uL (0-0.2); Basophils % (A) 0 %; Eosinophils # (A) 0.1 k/uL (0-0.7); Eosinophils % (A) 1 %; HCT 53.3 % (39.0-53.0); HGB 18.5 gm/dL (13.0-17.5); Lymphocytes # (A) 1.5 k/uL (1.0-4.8); Lymphocytes % (A) 13 %; MCH 30.8 pg (25.0-35.0); MCHC 34.7 g/dL (31.0-37.0); MCV 88.7 fL (80.0-100.0); Mean Platelet Volume 7.6; Monocytes # (A) 0.7 k/uL (0-1.0); Monocytes % (A) 6 %; Neutrophils # (A) 9.8 k/uL (1.3-7.7); Neutrophils % (A) 79 %; Platelet Count 268 k/uL (150-450); Poikilocytosis Slight; RDW 14.5 % (11.5-15.5); WBC 12.4 k/uL (3.8-10.6)
--- NOTE | 2021-07-13 16:38 | XR ---
EXAMINATION TYPE: XR chest 2V DATE OF EXAM: 07/13/2021 COMPARISON: 12/19/2020 HISTORY: Cough TECHNIQUE: FINDINGS: Heart and mediastinum are normal. Lungs are clear. Diaphragm is normal. Bony thorax is inta ct. There are chest leads. IMPRESSION: Normal chest. No change.
[2021-07-13 16:54] LABS: Partial Thromboplastin Time 22.4 sec (22.0-30.0); Prothrombin Time 10.6 sec (9.0-12.0)
[2021-07-13 16:55] LABS: ALT 35 U/L (4-49); AST 31 U/L (17-59); African American GFR (CKD) >90 (>60 ml/min/1.73 sqM); Albumin 4.7 g/dL (3.5-5.0); Alkaline Phosphatase 75 U/L (38-126); Anion Gap 12 mmol/L; Blood Urea Nitrogen 13 mg/dL (9-20); Calcium 10.1 mg/dL (8.4-10.2); Carbon Dioxide 21 mmol/L (22-30); Chloride 107 mmol/L (98-107); Glucose 109 mg/dL (74-99); Non-African American GFR(CKD) >90 (>60 ml/min/1.73 sqM); Sodium 140 mmol/L (137-145); Total Bilirubin 1.8 mg/dL (0.2-1.3); Total Protein 7.7 g/dL (6.3-8.2)
[2021-07-13 17:01] VITALS: BP 158/86; PULSE 74; RESP 18
[2021-07-13 17:04] LABS: Potassium 4.2 mmol/L (3.5-5.1)
== END 2021-07-13 18:09 | disposition home or self-care (01) ==
LOC: EC 14:46
DX: F41.0 Panic disorder [episodic paroxysmal anxiety] (principal); I10 Essential (primary) hypertension; F12.90 Cannabis use, unspecified, uncomplicated; Z87.19 Personal history of other diseases of the digestive system
CPT/HCPCS: 36415; 71046; 80053; 83735; 84484; 85025; 85610; 85730; 93005; 99285

== ENCOUNTER 2022-04-02 10:01 | Emergency (ER) | payer OTHER ==
[2022-04-02 10:06] VITALS: BP 153/95; PULSE 81; RESP 18; TEMP 98.2
[2022-04-02] MEDS ORDERED: KETOROLAC 15 MG/ML 1 ML VIAL IM STA (10:56)
--- NOTE | 2022-04-02 11:17 | ED ---
General Adult HPI - General Chief complaint: Extremity Injury, Upper Stated complaint: lt hand crushing injury Time Seen by Provider: 04/02/22 10:40 Source: patient, family Mode of arrival: ambulatory Limitations: no limitations - History of Present Illness Initial comments: This 31-year-old male presents emergency Department with left hand pain after a metal axle fell on top of his hand. Patient states she was working on his vehicle at 9:30 AM when the metal axle fell onto the top of his left hand. Patient states he is having pain in the center of his hand. He denies ever having trauma or fractures to this hand in his past. Patient states he is up-to-date on his tetanus shot. Patient denies any loss of sensation or loss of range of motion but states he does have pain when trying to bend his fingers. Patient states he does have a little bit of numbness in the tip of his middle finger of his left hand but states he can feel sharp sensation that area. He denies any chest pain, shortness of breath, abdominal pain, nausea, vomiting, change in bowel or bladder, change in appetite, lightheadedness, dizziness, change in vision, fever. - Related Data Home Medications Medication Instructions Recorded Confirmed Pamprin 2 cap PO Q6H PRN 04/02/22 04/02/22 Allergies Allergy/AdvReac Type Severity Reaction Status Date / Time No Known Allergies Allergy Verified 04/02/22 11:55 Review of Systems ROS Statement: Those systems with pertinent positive or pertinent negative responses have been documented in the HPI. ROS Other: All systems not noted in ROS Statement are negative. Past Medical History Past Medical History: Hypertension Additional Past Medical History / Comment(s): pancreatitis History of Any Multi-Drug Resistant Organisms: None Reported Past Surgical History: No Surgical Hx Reported, Cholecystectomy, Tonsillectomy Additional Past Surgical History / Comment(s): kidney stone removal Past Psychological History: No Psychological Hx Reported Smoking Status: Never smoker, Vaper Past Alcohol Use History: None Reported Past Drug Use History: Marijuana General Exam Limitations: no limitations General appearance: alert, in no apparent distress Head exam: Present: atraumatic, normocephalic, normal inspection Eye exam: Present: normal appearance, PERRL, EOMI. Absent: scleral icterus, conjunctival injection, periorbital swelling Pupils: Present: normal accommodation ENT exam: Present: normal exam, mucous membranes moist Neck exam: Present: normal inspection, full ROM. Absent: tenderness, meningismus, lymphadenopathy Respiratory exam: Present: normal lung sounds bilaterally. Absent: respiratory distress, wheezes, rales, rhonchi, stridor, chest wall tenderness Cardiovascular Exam: Present: regular rate, normal rhythm, normal heart sounds. Absent: systolic murmur, diastolic murmur, rubs, gallop, clicks GI/Abdominal exam: Present: soft, normal bowel sounds. Absent: distended, tenderness, guarding, rebound, rigid Extremities exam: Present: normal inspection (Patient was small abrasion between third and fourth knuckles. Minimal swelling over third and fourth metacarpals), full ROM (Patient with pain when asked to squeeze my fingers. Patient with full range of motion and full sensation is intact. Patient able to feel light touch sensation in all and hand only able to feel sharp sensation in the tip of left hand middle finger ), tenderness (Third and fourth metacarpal tenderness to palpation. Minimal swelling over third medicalarpal. Small abrasion between third and fourth knuckle left hand), normal capillary refill, other (Radial and ulnar pulses palpable bilaterally). Absent: pedal edema, joint swelling, calf tenderness Back exam: Present: full ROM. Absent: CVA tenderness (R), CVA tenderness (L), paraspinal tenderness, vertebral tenderness Neurological exam: Present: alert, oriented X3, CN II-XII intact, normal gait Psychiatric exam: Present: normal affect, normal mood Skin exam: Present: warm, dry, intact, normal color. Absent: rash Course Vital Signs 04/02/22 10:02 Temperature 98.2 F Pulse Rate 81 Respiratory 18 Rate Blood Pressure 153/95 O2 Sat by Pulse 98 Oximetry Medical Decision Making - Medical Decision Making This 31-year-old male presents emergency Department with left third and fourth metatarsal pain after tripping and axle on his left hand earlier today while working on a car. X-ray impression: No acute fracture or dislocation abdomen the left hand. Patient with full sensation and range of motion of left hand. Radial and ulnar pulses are palpable. Patient given Tylenol 3 starter pack and was placed in an Jason bandage wrap for comfort. Strict return precautions were discussed. Patient verbally agreed to plan. Patient sent home in stable condition. Case discussed in detail my attending, Disposition Clinical Impression: Sprain of hand, left Disposition: HOME SELF-CARE Condition: Stable Instructions (If sedation given, give patient instructions): Hand Sprain (ED) Additional Instructions: Take Tylenol #3 as directed. Ice, elevate and rest left hand. Return to the emergency department with any new, worsening, or concerning symptoms. Follow-up with primary care provider next 1-2 days. Is patient prescribed a controlled substance at d/c from ED?: No Referrals: None,Stated [Primary Care Provider] - 1-2 days Arsh Myers [STAFF PHYSICIAN] - 1-2 days Aminata Kenny NPC [STAFF PHYSICIAN] - 1-2 days Time of Disposition: 11:57
--- NOTE | 2022-04-02 11:45 | XR ---
EXAMINATION TYPE: XR hand complete LT DATE OF EXAM: 04/02/2022 CLINICAL HISTORY: Crushing injury with pain TECHNIQUE: Frontal, lateral and oblique images of the left hand are obtained. COMPARISON: None. FINDINGS: There is no acute fracture/dislocation clearly evident in the left hand with particular at tention to the fourth finger at area of clinical concern. Lateral view suboptimal due to osseous over lap. The joint spaces in the left hand appear within normal limits. The overlying soft tissue appear s unremarkable. IMPRESSION: There is no acute fracture or dislocation in the left hand.
[2022-04-02] MEDS ORDERED: ACET/COD 300 MG/30 MG STARTER PACK 6 TAB BTL PO STA (11:54)
== END 2022-04-02 12:12 | disposition home or self-care (01) ==
LOC: EC 10:01
DX: S63.92XA Sprain of unspecified part of left wrist and hand, initial encounter (principal); I10 Essential (primary) hypertension; F12.90 Cannabis use, unspecified, uncomplicated; W20.8XXA Other cause of strike by thrown, projected or falling object, initial encounter
CPT/HCPCS: 73130; 99283; 96372; J1885

== ENCOUNTER 2024-01-26 19:10 | Emergency (ER) | payer OTHER ==
[2024-01-26 19:30] VITALS: TEMP 98.5
--- NOTE | 2024-01-26 20:04 | ED ---
General Adult HPI - General Chief complaint: Skin/Abscess/Foreign Body Stated complaint: Tailbone Pain Time Seen by Provider: 01/26/24 19:17 Source: patient Mode of arrival: ambulatory Limitations: no limitations - History of Present Illness Initial comments: 33-year-old male with a past medical history significant for pilonidal cyst presenting to the ED with a chief complaint skin problem. Patient reports history of pilonidal cyst and previously followed up with a general surgeon in [place] approximately 10 years ago however reports since then has moved and has not followed up with general surgery since then. Today, states he started to experience some pain of his lower back noted to be in the area where the cyst was in the past. No fever or chills. No changes in bowel or bladder habits. No other complaints at this time. - Related Data Home Medications Medication Instructions Recorded Confirmed Pamprin 2 cap PO Q6H PRN 04/02/22 04/02/22 Previous Rx's Medication Instructions Recorded Acetaminophen Tab [Tylenol] 500 mg PO Q6H PRN #40 tablet 01/26/24 Amoxic-Pot Clav 875-125Mg 1 tab PO Q12HR 7 Days #14 tab 01/26/24 [Augmentin 875-125] Ibuprofen [Motrin] 600 mg PO Q8HR PRN #30 tab 01/26/24 Allergies Allergy/AdvReac Type Severity Reaction Status Date / Time No Known Allergies Allergy Verified 04/02/22 11:55 Review of Systems ROS Statement: Those systems with pertinent positive or pertinent negative responses have been documented in the HPI. ROS Other: All systems not noted in ROS Statement are negative. Past Medical History Past Medical History: Hypertension Additional Past Medical History / Comment(s): pancreatitis History of Any Multi-Drug Resistant Organisms: None Reported Past Surgical History: No Surgical Hx Reported, Cholecystectomy, Tonsillectomy Additional Past Surgical History / Comment(s): kidney stone removal Past Psychological History: No Psychological Hx Reported Smoking Status: Never smoker, Vaper Past Alcohol Use History: None Reported Past Drug Use History: Marijuana General Exam Limitations: no limitations General appearance: alert, in no apparent distress Head exam: Present: atraumatic, normocephalic Neck exam: Present: normal inspection Respiratory exam: Present: normal lung sounds bilaterally Cardiovascular Exam: Present: regular rate, normal rhythm GI/Abdominal exam: Present: soft, normal bowel sounds. Absent: distended, tenderness, guarding, rebound, rigid Rectal exam: Present: other (Patient does have approximately 1-1/2 cm area of induration superior to the gluteal cleft. There is no overlying warmth, erythema, edema. This area does appear tender to palpation.) Back exam: Present: normal inspection Neurological exam: Present: alert, oriented X3 Skin exam: Present: warm, dry Course Vital Signs 01/26/24 19:12 Temperature 98.5 F Pulse Rate 98 Respiratory 16 Rate Blood Pressure 176/100 O2 Sat by Pulse 98 Oximetry Medical Decision Making - Medical Decision Making Was pt. sent in by a medical professional or institution (, [facility], [facility] [employer], urgent care, hospital, or [place] [facility]...) When possible be specific @ -No Did you speak to anyone other than the patient for history (EMS, parent, family, police, friend...)? What history was obtained from this source @ -No Did you review nursing and triage notes (agree or disagree)? Why? @ -I reviewed and agree with nursing and triage notes Were old charts reviewed (outside hosp., previous admission, EMS record, old EKG, old radiological studies, urgent care reports/EKG's, [place] [facility] records)? Report findings @ -No old charts were reviewed Differential Diagnosis (chest pain, altered mental status, abdominal pain women, abdominal pain men, vaginal bleeding, weakness, fever, dyspnea, syncope, headache, dizziness, GI bleed, back pain, seizure, CVA, palpatations, mental health, musculoskeletal)? @ -Pilonidal cyst, pilonidal abscess. Anal fissure. Hemorrhoid. This is not meant to be an all-inclusive list. EKG interpreted by me (3pts min.). @ -None X-rays interpreted by me (1pt min.). @ -None done CT interpreted by me (1pt min.). @ -None done U/S interpreted by me (1pt. min.). @ -None done What testing was considered but not performed or refused? (CT, X-rays, U/S, labs)? Why? @ -None What meds were considered but not given or refused? Why? @ -None Did you discuss the management of the patient with other professionals (professionals i.e. , PA, [employer], lab, RT, psych nurse, social and human services assistant, sample sawyer, teacher, booking police officer, home health care case manager)? Give summary @ -No Was smoking cessation discussed for >3mins.? @ -No Was critical care preformed (if so, how long)? @ -No Were there social determinants of health that impacted care today? How? (Homelessness, low income, unemployed, alcoholism, drug addiction, transportation, low edu. Level, literacy, decrease access to med. care, fci, rehab)? @ -No Was there de-escalation of care discussed even if they declined (Discuss DNR or withdrawal of care, Hospice)? DNR status @ -No What co-morbidities impacted this encounter? (DM, HTN, Smoking, COPD, CAD, Cancer, CVA, ARF, Chemo, Hep., AIDS, mental health diagnosis, sleep apnea, morbid obesity)? @ -History of pilonidal cyst Was patient admitted / discharged? Hospital course, mention meds given and route, prescriptions, significant lab abnormalities, going to OR and other pertinent info. @ -Discharge 33-year-old male with history of pilonidal cyst not currently following with general surgery presenting to the ED with a complaint of lower back pain/skin problem. Patient reports today started to experience pain especially with sitting and reported that it is in the area of prior pilonidal cyst. No fever o r chills. Vital signs here stable afebrile. On examination there is approximately 1 to 1-1/2 cm area of induration superior to the gluteal cleft. No overlying warmth, erythema suggestive of large abscess formation. At this time, patient declined needle aspiration. Orrick at this time no significant indications for needle aspiration or incision/drainage. Patient discharged home with prescription for Augmentin. Provided referral to see general surgery. Also provided prescription for pain medications to use as needed. Discussed return precautions with patient and his who verbalized agreement. Undiagnosed new problem with uncertain prognosis? @ -No Drug Therapy requiring intensive monitoring for toxicity (Heparin, Nitro, Insulin, Cardizem)? @ -No Were any procedures done? @ -No Diagnosis/symptom? @ -Pilonidal cyst Acute, or Chronic, or Acute on Chronic? @ -Acute Uncomplicated (without systemic symptoms) or Complicated (systemic symptoms)? @ -Uncomplicated Side effects of treatment? @ -No Exacerbation, Progression, or Severe Exacerbation? @ -No Poses a threat to life or bodily function? How? (Chest pain, USA, DC, pneumonia, PE, COPD, DKA, ARF, appy, cholecystitis, CVA, Diverticulitis, Homicidal, Suicidal, threat to staff... and all critical care pts) @ -No Disposition Clinical Impression: Pilonidal cyst Disposition: HOME SELF-CARE Condition: Good Instructions (If sedation given, give patient instructions): Pilonidal Cyst (ED), Pilonidal Cyst Excision (DC) Additional Instructions: Please return to the Emergency Department if symptoms worsen or any other concerns. Please follow-up with your PCP and general surgery. Prescriptions: Amoxic-Pot Clav 875-125Mg [Augmentin 875-125] 1 tab PO Q12HR 7 Days #14 tab Ibuprofen [Motrin] 600 mg PO Q8HR PRN #30 tab PRN Reason: Pain Acetaminophen Tab [Tylenol] 500 mg PO Q6H PRN #40 tablet PRN Reason: Pain Is patient prescribed a controlled substance at d/c from ED?: No Referrals: Leanna May [Primary Care Provider] - 1-2 days Miguel Bolivar MD [STAFF PHYSICIAN] - 1-2 days Time of Disposition: 20:12
[2024-01-26] MEDS: AMOXIC-POT CLAV 875MG STARTER PACK 2 TAB BTL PO STA (20:40)
[2024-01-26] MEDS: KETOROLAC 15 MG/ML 1 ML VIAL IM STA (20:40)
[2024-01-26 21:01] VITALS: BP 142/91; PULSE 79; RESP 15
== END 2024-01-26 20:45 | disposition home or self-care (01) ==
LOC: EC 19:10
DX: L05.91 Pilonidal cyst without abscess (principal); I10 Essential (primary) hypertension; F17.290 Nicotine dependence, other tobacco product, uncomplicated; F12.90 Cannabis use, unspecified, uncomplicated
CPT/HCPCS: 99283; 96372; J1885

== ENCOUNTER 2024-07-07 00:13 | Emergency (ER) | payer OTHER ==
[2024-07-07] MEDS ORDERED: ACETAMINOPHEN TAB 500 MG TAB ONE (01:08)
== END 2024-07-07 02:10 | disposition home or self-care (01) ==
LOC: EC 00:13
CPT/HCPCS: 71046; 99283